=== PATIENT | female | born 1990 | race Caucasian/White ===

== ENCOUNTER 2019-08-26 09:42 | Emergency (ER) | payer OTHER ==
--- NOTE | 2019-08-26 10:19 | ER Document Report ---
ED Medical Screen (RME) - General Chief Complaint: Back Pain Stated Complaint: BACK PAIN, LEG PAIN Time Seen by Provider: 08/26/19 10:17 Mode of Arrival: Wheelchair Information source: Patient Notes: 28-year-old female presented to the ED for complaint of severe back pain unable to walk. She states yesterday she was sitting and she could not get up due to the pain in her lower back going down her legs. She states she did not fall at any time but she has not been able to get up on her legs since that time. She states her children helped her to get to the car and go to a neighbor's health them and they brought him back she still was not able to walk she was sleeping on the couch and when her child was crying upstairs she had to crawl up the steps to go to help her child and then she crawled to the bathroom during the night. She states this morning she was in the bed and could not get up or walk again. She states she just had normal back pain in the past she is never had anything where she could not get up and move on her own. States she had a partial hysterectomy 3 years ago. I have greeted and performed a rapid initial assessment of this patient. A comprehensive ED assessment and evaluation of the patient, analysis of test results and completion of medical decision making process will be conducted by an additional ED providers. - Related Data Allergies/Adverse Reactions: No Known Allergies Allergy (Unverified 08/26/19 10:12) Physical Exam - Vital signs Vitals: Temp Pulse Resp BP Pulse Ox 98.9 F 97 16 122/59 L 97 08/26/19 09:44 08/26/19 09:44 08/26/19 09:44 08/26/19 09:44 08/26/19 09:44 Course - Vital Signs Vital signs: Temp Pulse Resp BP Pulse Ox 98.9 F 97 16 122/59 L 97 08/26/19 09:44 08/26/19 09:44 08/26/19 09:44 08/26/19 09:44 08/26/19 09:44
[2019-08-26 10:58] LABS: ABSOLUTE EOSINOPHILS # (AUTO) 0.1 10^3/uL (0.0-0.6); ABSOLUTE LYMPHOCYTES (AUTO) 1.8 10^3/uL (0.5-4.7); ABSOLUTE MONOCYTES (AUTO) 0.5 10^3/uL (0.1-1.4); ABSOLUTE NEUT (AUTO) 3.7 10^3/uL (1.7-8.2); BASOPHILS % (AUTO) 0.3 % (0-2); EOSINOPHILS % (AUTO) 1.2 % (0-6); HEMATOCRIT 38.1 % (36.0-47.0); LYMPHOCYTES % (AUTO) 30.5 % (13-45); MEAN CORPUSCULAR HEMOGLOBIN 30.8 pg (27.0-33.4); MEAN CORPUSCULAR VOLUME 91 fl (80-97); MONOCYTES % (AUTO) 7.6 % (3-13); PLATELET COUNT 232 10^3/uL (150-450); RED CELL DISTRIBUTION WIDTH 13.2 % (11.5-14.0); SEGMENTED NEUTROPHILS % (AUTO) 60.4 % (42-78); TOTAL CELLS COUNTED % (AUTO) 100 %; WHITE BLOOD COUNT 6.1 10^3/uL (4.0-10.5)
[2019-08-26 11:19] LABS: ALBUMIN 5.2 g/dL (3.5-5.0); ALKALINE PHOSPHATASE 42 U/L (38-126); ANION GAP 9 (5-19); ASPARTATE AMINO TRANSFERASE 27 U/L (14-36); BILIRUBIN,TOTAL 0.7 mg/dL (0.2-1.3); BLOOD UREA NITROGEN 11 mg/dL (7-20); CALCIUM 9.9 mg/dL (8.4-10.2); CARBON DIOXIDE 30 mmol/L (22-30); CHLORIDE 100 mmol/L (98-107); GLUCOSE 91 mg/dL (75-110); POTASSIUM 4.3 mmol/L (3.6-5.0); TOTAL PROTEIN 8.4 g/dL (6.3-8.2)
--- NOTE | 2019-08-26 11:27 | RADIOLOGY REPORT (SQ) ---
EXAM DESCRIPTION: L SPINE WHOLE IMAGES COMPLETED DATE/TIME: 08/26/2019 11:09 am REASON FOR STUDY: low back pain unable to walk COMPARISON: None. NUMBER OF VIEWS: Five views including obliques. TECHNIQUE: AP, lateral, oblique, and sacral radiographic images acquired of the lumbar spine. LIMITATIONS: None. FINDINGS: MINERALIZATION: Normal. SEGMENTATION: Normal. No transitional anatomy. ALIGNMENT: Very slight convex right scoliotic curve. VERTEBRAE: Maintained height. No fracture or worrisome bone lesion. DISCS: Preserved height. No significant osteophytes or end plate irregularity. POSTERIOR ELEMENTS: Pedicles and facets are intact. No pars defect or posterior arch defects. HARDWARE: None in the spine. PARASPINAL SOFT TISSUES: Normal. PELVIS: Intact as visualized. No fractures or worrisome bone lesions. SI joints intact. OTHER: No other significant finding. IMPRESSION: Relatively unremarkable five view lumbar spine. No fracture or bone lesion. Preserved discs throughout. TECHNICAL DOCUMENTATION: JOB ID: [id number] 2010 [employer]- All Rights Reserved Reading location - IP/workstation name: [email or web address]
[2019-08-26] MEDS ORDERED: METHYLPREDNISOLONE ACETATE INJ 80 MG/1 ML VIAL IM ONE ×2 (11:31→12:15)
[2019-08-26] MEDS ORDERED: KETOROLAC TROMETHAMINE 60 MG/2 ML SDV IM ONE (11:31)
--- NOTE | 2019-08-26 12:36 | ER Document Report ---
ED General - General Chief Complaint: Back Pain Stated Complaint: BACK PAIN, LEG PAIN Time Seen by Provider: 08/26/19 10:17 Primary Care Provider: ANDREY HERNANDES MD [ACTIVE PROVISIONAL STAFF] - Follow up as needed Mode of Arrival: Wheelchair Information source: Patient TRAVEL OUTSIDE OF THE [place] IN LAST 30 DAYS: No - HPI Onset: Yesterday Onset/Duration: Sudden Quality of pain: Pressure, Sharp Severity: Severe Pain Level: 5 Associated symptoms: None, Other - patient denies numbness, tingling, weakness, incontinence Exacerbated by: Movement, Other - twisting of torson, bending over, standing, walking Relieved by: Denies Similar symptoms previously: No Recently seen / treated by doctor: No Notes: 28 year old female with no known PMH here for acute onset low back pain which started yesterday when getting up from the ground. The patient denies any trauma to her back or recent heavy lifting. The patient has thrown her back out before but she has never had pain like this before (it reduced her to her knees). The patient denies numbness, tingling, weakness, incontinence but she does have some radiation of the pain into her right buttock. The patient has not had any back surgeries. - Related Data Allergies/Adverse Reactions: No Known Allergies Allergy (Unverified 08/26/19 10:12) Home Medications: Advil Past Medical History - General Information source: Patient - Social History Smoking Status: Former Smoker Frequency of alcohol use: Occasional Drug Abuse: None Lives with: Family Family History: Reviewed & Not Pertinent Patient has suicidal ideation: No Patient has homicidal ideation: No Review of Systems - Review of Systems Constitutional: No symptoms reported EENT: No symptoms reported Cardiovascular: No symptoms reported Respiratory: No symptoms reported Gastrointestinal: No symptoms reported Genitourinary: No symptoms reported Female Genitourinary: No symptoms reported Musculoskeletal: Back pain Skin: No symptoms reported Hematologic/Lymphatic: No symptoms reported Neurological/Psychological: No symptoms reported -: Yes All other systems reviewed and negative Physical Exam - Vital signs Vitals: Temp Pulse Resp BP Pulse Ox 98.9 F 97 16 122/59 L 97 08/26/19 09:44 08/26/19 09:44 08/26/19 09:44 08/26/19 09:44 08/26/19 09:44 - Notes Notes: GENERAL: Well-appearing, well-nourished and in no acute distress. HEAD: Atraumatic, normocephalic. EYES: Pupils equal round and reactive to light, extraocular movements intact, sclera anicteric, conjunctiva are normal. ENT: External ears normal, nares patent, oropharynx clear without exudates. Moist mucous membranes. NECK: Normal range of motion, supple without lymphadenopathy or JVD. LUNGS: Breath sounds clear to auscultation bilaterally and equal. No wheezes rales or rhonchi. HEART: Regular rate and rhythm without murmurs, rubs or gallops. ABDOMEN: Soft, nontender, normoactive bowel sounds. No guarding, no rebound. No masses appreciated. EXTREMITIES: Decreased ROM of legs due to pain. Straight leg raise with right leg is more painful then left. No pitting or edema. No clubbing or cyanosis. BACK: Tender in Lumbar spine region on palpation with no step offs. NEUROLOGICAL: Cranial nerves II through XII grossly intact. Normal speech, normal gait. PSYCH: Normal mood, normal affect. SKIN: Warm, Dry, normal turgor, no rashes or lesions noted. Course - Re-evaluation Re-evalutation: 08/26/19 14:00 The patient is here for acute back pain. From what she is describing it sounds like she may have an acute herniated disc. The patient was treated in the ER with Depomedrol and Toradol with improvement of her pain. Patient was able to ambulate after treatment. Patient drove to the ER today so she was prescribed but not given Robaxin and Tramadol. Patient has no signs or symptoms of cord compression. Patient had an unremarkable Xray. Patient told to follow up with her PCP or Ortho/Spine if symptoms persist. - Vital Signs Vital signs: Temp Pulse Resp BP Pulse Ox 98.9 F 76 16 104/72 99 08/26/19 09:44 08/26/19 13:09 08/26/19 09:44 08/26/19 13:09 08/26/19 13:09 - Laboratory Result Diagrams: 08/26/19 10:35 08/26/19 10:35 Laboratory results interpreted by me: 08/26/19 10:35 Creatinine 0.47 L Total Protein 8.4 H Albumin 5.2 H - Diagnostic Test Radiology reviewed: Image reviewed, Reports reviewed Discharge - Discharge Clinical Impression: Back pain Qualifiers: Back pain location: low back pain Chronicity: acute Back pain laterality: bilateral Sciatica presence: with sciatica Sciatica laterality: sciatica of right side Qualified Code(s): M54.41 - Lumbago with sciatica, right side Condition: Stable Disposition: HOME, SELF-CARE Instructions: Low Back Pain ([facility]) Additional Instructions: Use Naproxen along with over the counter Tylenol for back pain. Use Tramadol for pain not well controlled. Use Robaxin for muscle/back spasms. Follow up with a primary care doctor or an Orthopedic Surgeon if your back pain persists over the next 2 weeks. Prescriptions: Naproxen 500 mg PO BID PRN #20 tablet PRN Reason: Methocarbamol [Robaxin 750 mg Tablet] 750 mg PO TID PRN #15 tablet PRN Reason: Tramadol HCl [Ultram 50 mg Tablet] 50 mg PO Q6H PRN #10 tab PRN Reason: Referrals: ANDREY HERNANDES MD [ACTIVE PROVISIONAL STAFF] - Follow up as needed
[2019-08-26 13:14] VITALS: BP 104/72
== END 2019-08-26 13:14 | disposition home or self-care (01) ==
LOC: ER 09:42
DX: M54.41 Lumbago with sciatica, right side (principal); Z87.891 Personal history of nicotine dependence
CPT/HCPCS: 99283; 96372; 36415; 84703; 85025; 80053; 72110; J1885; J1040